=== PATIENT | female | born 1965 | race Caucasian/White ===

== ENCOUNTER 2018-05-17 13:07 | Emergency (ER) | payer OTHER ==
[2018-05-17 13:24] VITALS: BP 126/81
--- NOTE | 2018-05-17 13:34 | UC ---
Back Pain HPI - HPI Summary HPI Summary: 52 yo female presents with left SI pain. She tells me that this morning she slipped on the ice and landed on her buttocks. Since that time she has had pain in her left buttocks/SI region. When she fell, she did hit the back of her head , but was wearing a thick hat and had no LOC. Currently does not have a headache , dizziness, vision changes. She took some ibuprofen for her back, which did help. She is most concerned about a fracture as she is going to be doing a lot of moving and heavy lifting over the next 3-4 days and does not want to make anything worse. Denies radiation of pain, numbness, tingling, saddle anesthesia , or loss of bowel/bladder control. - History of Current Complaint Chief Complaint: UCBackPain Stated Complaint: BACK PAIN Time Seen by Provider: 05/17/18 13:34 Hx Obtained From: Patient Hx Last Menstrual Period: 10/14/14 Onset/Duration: Sudden Onset Timing: Constant Severity Initially: Moderate Severity Currently: Moderate Pain Intensity: 6 Pain Scale Used: 0-10 Numeric - Allergies/Home Medications Allergies/Adverse Reactions: Allergies Allergy/AdvReac Type Severity Reaction Status Date / Time cyclobenzaprine Allergy See Comment Verified 05/17/18 13:25 shellfish derived Allergy Anaphylatic Verified 05/17/18 13:25 Shock Home Medications: Home Medications Ibuprofen 600 mg PO ONCE PRN 05/17/18 [History Confirmed 05/17/18] PMH/Surg Hx/FS Hx/Imm Hx Respiratory History: Asthma Psychological History: Anxiety, Depression - Surgical History Surgical History: Yes Surgery Procedure, Year, and Place: APPENDECTOMY, LEFT BREAST LUMPECTOMY - Family History Known Family History: Positive: Cardiac Disease - Social History Occupation: Employed Full-time Lives: With Family Alcohol Use: Weekly Substance Use Type: None Smoking Status (MU): Never Smoked Tobacco Review of Systems All Other Systems Reviewed And Are Negative: Yes Constitutional: Positive: Negative Skin: Positive: Negative Respiratory: Positive: Negative Cardiovascular: Positive: Negative Neurovascular: Positive: Negative Musculoskeletal: Positive: Other: - Left buttocks/SI pain Neurological: Positive: Negative Psychological: Positive: Negative Physical Exam - Summary Physical Exam Summary: GENERAL: NAD. WDWN. No pain distress. SKIN: No rashes, sores, lesions, or open wounds. NECK: Supple. FROM. Nontender. CHEST: CTAB. No r/r/w. No accessory muscle use. Breathing comfortably and in no distress. CV: RRR. Without m/r/g. Pulses intact. Cap refill <2seconds MSK: TTP over left SI. Mild pain with flexion and extension of spine. Positive SLR on left for low back pain without radiation. Strength 5/5 B/L LEs including dorsiflexion and plantar flexion. FROM B/L LEs. No edema. NEURO: AAOx3. Sensations intact B/L LEs L3-S1. PSYCH: Age appropriate behavior. Triage Information Reviewed: Yes Vital Signs: Initial Vital Signs Temp 97.6 F 05/17/18 13:19 Pulse 80 05/17/18 13:19 Resp 18 05/17/18 13:19 BP 126/81 05/17/18 13:19 Pulse Ox 100 05/17/18 13:19 Vital Signs Reviewed: Yes Back Pain Course/Dx - Course Course Of Treatment: XR: IMPRESSION: #. No radiographic evidence for traumatic lumbar sacral spine injury. Discussed results with pt - suspect contusion due to fall. Advised to rest and apply ice. Continue taking ibuprofen for discomfort. - Differential Dx/Diagnosis Provider Diagnosis: Contusion, Fall Discharge - Sign-Out/Discharge Documenting (check all that apply): Patient Departure All imaging exams completed and their final reports reviewed: Yes - Discharge Plan Condition: Stable Disposition: HOME Patient Education Materials: Contusion in Adults (ED) Referrals: Lawrence Mello MD [Primary Care Provider] - Additional Instructions: If you develop a fever, shortness of breath, chest pain, new or worsening symptoms - please call your PCP or go to the ED. 1) Rest and apply ice to your area of discomfort 2) May take ibuprofen for pain - Billing Disposition and Condition Condition: STABLE Disposition: Home
== END 2018-05-17 14:35 | disposition home or self-care (01) ==
LOC: UCEAST 13:07
DX: S30.0XXD Contusion of lower back and pelvis, subsequent encounter (principal); Y92.9 Unspecified place or not applicable; W01.0XXD Fall on same level from slipping, tripping and stumbling without subsequent striking against object, subsequent encounter; Z88.8 Allergy status to other drugs, medicaments and biological substances
CPT/HCPCS: 72110; 99211; G0463